=== PATIENT | male | born 1975 | race Native Hawaiian/Other Pacific Islander ===

== ENCOUNTER 2018-03-24 13:32 | Outpatient (CLI) | payer BC ==
[2018-03-24 14:28] LABS: PLATELET COUNT 261 K/uL (142-355)
[2018-03-24 14:50] LABS: POTASSIUM 4.4 mmol/L (3.6-5.2)
== END 2018-03-24 19:10 | disposition home or self-care (01) ==
LOC: LAB 13:32
PROVIDERS: Internal Medicine
DX: Z00.00 Encounter for general adult medical examination without abnormal findings (principal); Z12.5 Encounter for screening for malignant neoplasm of prostate
CPT/HCPCS: 36415; 80053; 80061; 81000; 84153; 84443; 85027